=== PATIENT | female | born 1970 | race Caucasian/White ===

== ENCOUNTER → 2023-10-14 | Outpatient (CLI) | payer MEDICAID ==
--- NOTE | 2023-10-18 09:38 | MR ---
EXAMINATION: MR tib fib RT wo con DATE OF EXAM: 10/14/2023 COMPARISON: None HISTORY: RT lower leg pain and swelling x2 weeks-Pt felt a pop TECHNIQUE: Multiplanar, multisequence images of the right lower leg were acquired without contrast. FINDINGS: BONES/MARROW: Normal bone marrow signal. SOFT TISSUES: Small amount of intramuscular edema of the medial aspect medial head of the gastrocnemi us at the distal myotendinous junction as well as a small amount of edema within the myofascial plane s surrounding the right medial gastrocnemius. The remainder of the myotendinous junctions are normal. No anatomic variant. No bursal distention. No fluid collection. NEUROVASCULAR: Visualized neurovascular structures are normal. OTHER: Normal. No mass. No lymphadenopathy. IMPRESSION: Low-grade myotendinous junction injury medial head of the gastrocnemius (tennis leg injury).
== END | disposition home or self-care (01) ==
LOC: RADMRIMAIN 17:46
PROVIDERS: ATTEND Orthopaedic Surgery
DX: S86.111A Strain of other muscle(s) and tendon(s) of posterior muscle group at lower leg level, right leg, initial encounter (principal); S09.90XA Unspecified injury of head, initial encounter; X58.XXXA Exposure to other specified factors, initial encounter